=== PATIENT | male | born 1990 | race Hispanic/Latino ===

== ENCOUNTER 2017-06-13 18:24 | Emergency (ER) | payer OTHER ==
[~2017-06-13] VITALS: Ht 180.3 cm; Wt 63.5 kg
[~2017-06-13 18:24] MED LIST: AMOXICILLIN250 M3 PO; BACTRIM DS TAB1 EACH PO; IBUPROFEN600 M1 PO; KEFLEX500 M1 PO; ULTRAM50 M1 PO
[2017-06-13 18:46] VITALS: BP 127/71
--- NOTE | 2017-06-13 19:44 | ED GI/GU/ABDOMINAL COMPLAINT ---
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 Triage Nurses Notes Reviewed? yes Onset: Abrupt Duration: day(s): (1), constant Timing: recent history Quality/Severity: aching (pruritus) Severity Numbers: 4 Radiation: no radiation No Modifying Factors: none Associated Symptoms: deneis HPI: 27-year-old male presents to ER after he states he noticed a worm in his stool today associated with anal pruritus and pain. He denies any sick contacts or history of similar episodes in the past. No abdominal pain nausea vomiting diarrhea constipation black or bloody stools. No recent travel. Patient denies any symptoms at this time. No modifying factors or associated symptoms otherwise. Past History Travel History Traveled to [place] past 21 day No Medical History Any Pertinent Medical History? 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 No Review of Systems Review of Systems Constitutional: Reports: see HPI. Comments Review of systems: See HPI, All other systems negative. Constitutional, no chills no fever, HEENT: no sore throat no congestion Cardiovascular: No chest pain Skin: no rashes, no change in skin Respiratory: No dyspnea no cough no sputum GI: No nausea no vomiting, no diarrhea, no bloating/constipation : No dysuria Muscle skeletal: No joint pain, no back pain, no neck pain, Neurologic: , no headache Psych: No stress Heme/endocrine: No bruising Immunology: No lymphadenopathy Physical Exam Physical Exam General Appearance: well developed/nourished, alert, awake, comfortable Gastrointestinal: soft, non-tender Comments: Well-developed well-nourished person in no acute distress HEENT: Normal EENT exam; PERRL, EOMI, HEAD is atraumatic. moist mucous membranes. Neck: Supple, normal range of motion Back: Nontender, no CVA tenderness. Full range of motion Cardiovascular: Regular rate and rhythms no murmur Respiratory: No respiratory distress. Patient speaking in full complete sentences. Breath sounds clear to auscultation bilaterally: NO W/R/R Abdomen: Soft, nontender nondistended, no appreciable organomegaly. Normal bowel sounds. No rebound/guarding Extremity: No edema, full range of motion of extremities Neuro: Alert oriented x3, motor sensory normal, There were no obvious focal neurologic abnormalities. Skin: No appreciable rash on exposed skin, skin is warm and dry. Psych: Mood and affect is normal, memory and judgment is normal. Core Measures ACS in differential dx? No Sepsis Present: No Sepsis Focused Exam Completed? No Progress Differential Diagnosis: enterobiasis, tapeworm, hookworm Plan of Care: Microbiology 06/13 1944 STOOL: Cryptosporidium Antigen - CAN Cancelled: Cancelled via OE: Per MD Decision 06/13 1944 STOOL: Giardia Antigen (SORAYA) - CAN Cancelled: Cancelled via OE: Per MD Decision 06/13 1944 STOOL: Stool Culture - CAN Cancelled: Cancelled via OE: Per MD Decision stool culture discussed with patient need for stool culture .will send pt home with vermox, advised f/u with pmd on thursday. they feel comfortable with plan cleared for dc Initial ED EKG: none Departure Departure Time of Disposition: 1951 Disposition: HOME OR SELF CARE Condition: Stable Clinical Impression Primary Impression: Pinworm infection Referrals: Patient Has No Primary Care Dr (PCP/Family) Additional Instructions: Provide stool culture as discussed, the mebendazole as directed. Follow-up with your Departure Forms: Customer Survey General Discharge Information Prescriptions: Current Visit Scripts [id number] (Emverm) 1 TAB PO EVERY 3 WEEKS #2 TAB
[2017-06-13] MEDS ORDERED: EMVERM100 MG PO (19:54)
== END 2017-06-13 20:10 ==
LOC: ERH 18:24
DX: B80 Enterobiasis (principal)
CPT/HCPCS: 87045; 87328; 87329